=== PATIENT | male | born 1985 | race African-American/Black ===

== ENCOUNTER 2024-08-08 16:18 | Inpatient (IN) | payer OTHER ==
[2024-08-08 16:48] VITALS: BMI 22.1
[2024-08-08] MEDS ORDERED: LOPERAMIDE HCL 2 MG CAPSULE PO PRN (18:09)
[2024-08-08] MEDS ORDERED: MAGNESIUM HYDROX 2400MG/30ML ORAL SUSPENSION 30 ML CUP PO PRN (18:09)
[2024-08-08] MEDS ORDERED: MAG HYDROX/AL HYDROX/SIMETH 30 ML UNIT-DOSE CUP PO PRN (18:09)
[2024-08-08] MEDS ORDERED: NALOXONE (NARCAN) HCL 4 MG/0.1 ML SPRAY NS PRN (18:09)
[2024-08-08] MEDS ORDERED: DICYCLOMINE HCL 10 MG CAPSULE PO PRN (18:09)
[2024-08-08] MEDS ORDERED: BENZOCAINE/MENTHOL (CHLORASEPTIC ) LOZENGE MM PRN (18:09)
[2024-08-08] MEDS ORDERED: POLYETHYLENE GLYCOL (HEALTHYLAX) 3350 17 GM PACKET PO PRN (18:09)
[2024-08-08] MEDS ORDERED: BENZONATATE 200 MG CAPSULE PO PRN (18:09)
[2024-08-08] MEDS ORDERED: guaiFENesin 600 MG TABLET.ER (FP) PO PRN (18:09)
[2024-08-08] MEDS ORDERED: ONDANSETRON *ODT* 4 MG TABLET SL PRN (18:09)
[2024-08-08] MEDS ORDERED: BISMUTH SUBSALICYLATE 524 MG/30 ML PO PRN (18:09)
[2024-08-08] MEDS ORDERED: methaDONE HCL 10 MG TABLET (FOR DETOX USE ONLY) PO PRN (18:09)
[2024-08-08] MEDS ORDERED: methaDONE HCL 10 MG TABLET (FOR DETOX USE ONLY) ONE (19:07)
[2024-08-08] MEDS: methaDONE HCL 10 MG TABLET (FOR DETOX USE ONLY) PO ONE (19:10)
[2024-08-08] MEDS: hydrOXYzine PAMOATE 25 MG CAPSULE (FP) PO PRN (22:09)
[2024-08-08] MEDS: MELATONIN 5 MG TABLETS PO SCH (22:09)
[2024-08-08] MEDS: THIAMINE 100 MG TABLET PO SCH (22:09)
[2024-08-08] MEDS: METHOCARBAMOL 500 MG TABLET PO PRN (22:09)
[2024-08-09] MEDS: cloNIDine HCL 0.1 MG TABLET PO PRN (05:37)
[2024-08-09] MEDS: IBUPROFEN 600 MG TABLET (FP) PO PRN (05:37)
[2024-08-09] MEDS: PRENATAL VITAMINS W/ FOLIC ACID TABLET (FP) PO SCH (09:20)
[2024-08-09] MEDS: ACETAMINOPHEN 325 MG TABLET (FP) PO PRN (09:21)
[2024-08-09 09:33] LABS: HEMATOCRIT 35.5 % (35.4-49); HEMOGLOBIN 11.8 GM/dL (11.7-16.9); MCH 27.5 pg (25.7-33.7); MCHC 33.2 g/dl (32.0-35.9); MEAN CELL VOLUME 82.9 fl (80-96); MEAN PLT VOLUME 7.4 fl (7.5-11.1); PLATELET COUNT 335 10^3/uL (134-434); RBC 4.28 M/mm3 (4.00-5.60); RDW 13.3 % (11.9-15.9); WHITE BLOOD COUNT 6.7 K/mm3 (4.0-10.0)
[2024-08-09] MEDS: QUEtiapine FUMARATE 100 MG TABLET (FP) PO SCH (22:23)
[2024-08-10] MEDS: methaDONE HCL 10 MG TABLET (FOR DETOX USE ONLY) PO ONE (10:25)
[2024-08-11] MEDS: IBUPROFEN 400 MG TABLET (FP) PO PRN (05:29)
[2024-08-11] MEDS ORDERED: NICOTINE POLACRILEX 2 MG GUM BUC PRN (16:14)
[2024-08-11] MEDS: NICOTINE 14 MG/24 HOURS TOPICAL PATCH TD SCH ×2 (19:03→23:26)
[2024-08-12] MEDS: methaDONE HCL 10 MG TABLET (FOR DETOX USE ONLY) PO ONE (09:12)
[2024-08-12 09:26] VITALS: BP 128/93; PULSE 94; RESP 18; TEMP 97.7
== END 2024-08-12 09:31 | disposition home or self-care (01) | DRG 897 ==
LOC: YASAS 16:18 → Y3N 19:16
PROVIDERS: ADMIT Allergy & Immunology; ATTEND Allergy & Immunology
PROC: HZ2ZZZZ Detoxification Services for Substance Abuse Treatment (ICD-10-PCS; principal; 2024-08-08)
DX: F11.23 Opioid dependence with withdrawal (principal); F14.20 Cocaine dependence, uncomplicated; F19.282 Other psychoactive substance dependence with psychoactive substance-induced sleep disorder; F17.210 Nicotine dependence, cigarettes, uncomplicated; F19.24 Other psychoactive substance dependence with psychoactive substance-induced mood disorder; F31.9 Bipolar disorder, unspecified; F39 Unspecified mood [affective] disorder; Z86.19 Personal history of other infectious and parasitic diseases
CPT/HCPCS: 36415; 80305; 80307; 85027; 86593; 86780; 93005; 93010